=== PATIENT | male | born 1940 | race Caucasian/White ===

== ENCOUNTER 2017-05-22 19:37 | Inpatient (IN) | payer MEDICARE, BC ==
[2017-05-22] MEDS ORDERED: Sodium Chloride 0.9% 10 ML Syringe FLUSH PRN ×2 (20:05→23:23)
[2017-05-22] MEDS ORDERED: Albuterol 0.083% 2.5 MG/3 ML Neb Soln NEB ONE (20:20)
--- NOTE | 2017-05-22 20:24 | EDM.PDOC ---
ED HPI GENERAL MEDICAL PROBLEM - General Chief Complaint: Respiratory Problem Stated Complaint: COPD TROUBLE BREATHING Time Seen by Provider: 05/22/17 20:20 Source of Information: Reports: Patient, Family History Limitations: Reports: No Limitations - History of Present Illness INITIAL COMMENTS - FREE TEXT/NARRATIVE: pt has had progressive sob and fever. They did try to call there internet sales consultant yesterday for antbiotics and they were not able to get ahold of him. Onset: Gradual Duration: Hour(s): Location: Reports: Chest Associated Symptoms: Reports: Cough, Diaphoresis, Fever/Chills, Shortness of Breath, Weakness denies pain Pain Score (Numeric/FACES): 0 - Related Data Allergies Allergy/AdvReac Type Severity Reaction Status Date / Time No Known Allergies Allergy Verified 05/22/17 20:09 ED ROS GENERAL - Review of Systems Review Of Systems: See Below Constitutional: Reports: Fever, Chills, Malaise, Weakness HEENT: Reports: No Symptoms Respiratory: Reports: Shortness of Breath, Wheezing, Cough, Sputum Cardiovascular: Reports: No Symptoms, Chest Pain Endocrine: Reports: No Symptoms GI/Abdominal: Reports: No Symptoms : Reports: No Symptoms Musculoskeletal: Reports: No Symptoms Skin: Reports: No Symptoms ED EXAM, GENERAL - Physical Exam Exam: See Below Free Text/Narrative:: pt arrived with sob and low o2 sats. He is coughing up sputum He has been running a temp. Exam Limited By: No Limitations General Appearance: Alert, Anxious, Moderate Distress Ears: Normal TMs Nose: Normal Inspection Throat/Mouth: Normal Inspection Head: Atraumatic Neck: Normal Inspection Respiratory/Chest: Decreased Breath Sounds, Crackles, Wheezing Cardiovascular: Regular Rate, Rhythm, Tachycardia GI/Abdominal: Soft, Non-Tender (Male) Exam: Normal Inspection Rectal (Males) Exam: Deferred Back Exam: Normal Inspection Extremities: Other (very mild edema. ) Neurological: Alert, Oriented, Normal Cognition Course - Vital Signs Last Recorded V/S: Last Vital Signs Temp 39.5 C H 05/22/17 21:03 Pulse 108 H 05/22/17 21:03 Resp 32 H 05/22/17 21:03 BP 112/61 05/22/17 21:03 Pulse Ox 88 L 05/22/17 21:03 - Orders/Labs/Meds Orders: Active Orders 24 hr Category Date Time Status RT Aerosol Therapy [RC] ASDIRECTED Care 05/22/17 20:20 Active Chest 1V Frontal [CR] Stat Exams 05/22/17 20:03 Taken CULTURE BLOOD [BC] Urgent Lab 05/22/17 20:00 Received CULTURE BLOOD [BC] Urgent Lab 05/22/17 20:10 Received UA W/MICROSCOPIC [URIN] Urgent Lab 05/22/17 19:55 Uncollected Acetaminophen [Tylenol] Med 05/22/17 21:04 Once 650 mg PO NOW ONE Sodium Chloride 0.9% [Normal Saline] 1,000 ml Med 05/22/17 21:00 Ordered IV ASDIRECTED Sodium Chloride 0.9% [Saline Flush] Med 05/22/17 20:05 Active 10 ml FLUSH ASDIRECTED PRN Blood Culture x2 Reflex Set [OM.PC] Urgent Oth 05/22/17 20:02 Ordered Saline Lock Insert [OM.PC] Routine Oth 05/22/17 20:05 Ordered Medication Orders Acetaminophen (Tylenol) 650 mg PO NOW ONE Stop: 05/22/17 21:05 Sodium Chloride (Normal Saline) 1,000 mls @ 75 mls/hr IV ASDIRECTED RAMONA Sodium Chloride (Saline Flush) 10 ml FLUSH ASDIRECTED PRN PRN Reason: Keep Vein Open Labs: Laboratory Tests 05/22/17 05/22/17 05/22/17 Range/Units 19:55 20:00 20:00 WBC 11.2 H (4.5-11.0) K/uL RBC 4.56 (4.30-5.90) M/uL Hgb 14.5 (12.0-15.0) g/dL Hct 44.4 (40.0-54.0) % MCV 97 (80-98) fL MCH 32 H (27-31) pg MCHC 33 (32-36) % Plt Count 175 (150-400) K/uL Neut % (Auto) 84 H (36-66) % Lymph % (Auto) 4 L (24-44) % Calloway % (Auto) 11 H (2-6) % Eos % (Auto) 0 L (2-4) % Baso % (Auto) 1 (0-1) % Puncture Site ABG pH (7.350-7.450) ABG pCO2 (35.0-42.0) mmHg ABG pO2 (75.0-100.0) mmHg ABG HCO3 (22.0-26.0) mmol/L ABG Total CO2 (23.0-27.0) mmol/L ABG O2 Saturation (95.0-98.0) % ABG O2 Content (15.0-23.0) %vol ABG Base Excess mm/L ABG Hemoglobin (13.5-18.0) g/dL ABG Oxyhemoglobin % ABG Carboxyhemoglobin (0.0-1.6) % ABG Methemoglobin % Martin Test O2 Delivery Device Sodium 137 L (140-148) mmol/L Potassium 4.2 (3.6-5.2) mmol/L Chloride 102 (100-108) mmol/L Carbon Dioxide 29 (21-32) mmol/L Anion Gap 10.2 (5.0-14.0) mmol/L BUN 22 H (7-18) mg/dL Creatinine 1.1 (0.8-1.3) mg/dL Est Cr Clr Drug Dosing 67.22 mL/min Estimated GFR (MDRD) > 60 (>60) Glucose 134 H (74-106) mg/dL Lactic Acid 1.5 (0.4-2.0) mmol/L Calcium 8.3 L (8.5-10.1) mg/dL Total Bilirubin 0.4 (0.2-1.0) mg/dL AST 16 (15-37) U/L ALT 17 (12-78) U/L Alkaline Phosphatase 56 (46-116) U/L Ixp-P-Sdsmbniewgx Pept (5-450) pg/mL Total Protein 7.3 (6.4-8.2) g/dL Albumin 2.8 L (3.4-5.0) g/dL Globulin 4.5 H (2.3-3.5) g/dL Albumin/Globulin Ratio 0.6 L (1.2-2.2) 05/22/17 05/22/17 Range/Units 20:00 20:07 WBC (4.5-11.0) K/uL RBC (4.30-5.90) M/uL Hgb (12.0-15.0) g/dL Hct (40.0-54.0) % MCV (80-98) fL MCH (27-31) pg MCHC (32-36) % Plt Count (150-400) K/uL Neut % (Auto) (36-66) % Lymph % (Auto) (24-44) % [place]ay % (Auto) (2-6) % Eos % (Auto) (2-4) % Baso % (Auto) (0-1) % Puncture Site left radial ABG pH 7.435 (7.350-7.450) ABG pCO2 42.1 H (35.0-42.0) mmHg ABG pO2 58.9 L (75.0-100.0) mmHg ABG HCO3 27.8 H (22.0-26.0) mmol/L ABG Total CO2 24.1 (23.0-27.0) mmol/L ABG O2 Saturation 90.0 L (95.0-98.0) % ABG O2 Content 18.3 (15.0-23.0) %vol ABG Base Excess 3.6 mm/L ABG Hemoglobin 14.8 (13.5-18.0) g/dL ABG Oxyhemoglobin 87.9 % ABG Carboxyhemoglobin 1.8 H (0.0-1.6) % ABG Methemoglobin 0.5 % Martin Test Passed O2 Delivery Device Nasal cannula Sodium (140-148) mmol/L Potassium (3.6-5.2) mmol/L Chloride (100-108) mmol/L Carbon Dioxide (21-32) mmol/L Anion Gap (5.0-14.0) mmol/L BUN (7-18) mg/dL Creatinine (0.8-1.3) mg/dL Est Cr Clr Drug Dosing mL/min Estimated GFR (MDRD) (>60) Glucose (74-106) mg/dL Lactic Acid (0.4-2.0) mmol/L Calcium (8.5-10.1) mg/dL Total Bilirubin (0.2-1.0) mg/dL AST (15-37) U/L ALT (12-78) U/L Alkaline Phosphatase (46-116) U/L Ayf-W-Midykzzgpno Pept 1334 H (5-450) pg/mL Total Protein (6.4-8.2) g/dL Albumin (3.4-5.0) g/dL Globulin (2.3-3.5) g/dL Albumin/Globulin Ratio (1.2-2.2) Meds: Medications Generic Name Dose Route Start Last Admin Trade Name Freq PRN Reason Stop Dose Admin Acetaminophen 650 mg 05/22/17 21:04 Tylenol PO 05/22/17 21:05 NOW ONE Sodium Chloride 1,000 mls @ 75 mls/hr 05/22/17 21:00 Normal Saline IV ASDIRECTED RAMONA Sodium Chloride 10 ml 05/22/17 20:05 Saline Flush FLUSH ASDIRECTED PRN Keep Vein Open Discontinued Medications Generic Name Dose Route Start Last Admin Trade Name Freq PRN Reason Stop Dose Admin Albuterol 2.5 mg 05/22/17 20:20 05/22/17 20:42 Proventil Neb Soln NEB 05/22/17 20:21 2.5 mg ONETIME ONE Administration Furosemide 40 mg 05/22/17 20:54 Lasix IVPUSH 05/22/17 20:55 ONETIME ONE - Re-Assessments/Exams Free Text/Narrative Re-Assessment/Exam: 05/22/17 21:05 t fever continues to rise. His chest xray may have somne infiltrate on the left. He may also be fluid overloaded. His wbc is 11,000. Departure - Departure Time of Disposition: 21:07 Disposition: Admitted As Inpatient 65 Condition: Fair Clinical Impression: Pneumonia, Bronchospasm - Discharge Information Forms: ED Department Discharge Care Plan Goals: admit to Dr ruiz. - My Orders Last 24 Hours: My Active Orders 05/22/17 19:55 UA W/MICROSCOPIC [URIN] Urgent 05/22/17 20:00 CULTURE BLOOD [BC] Urgent 05/22/17 20:02 Blood Culture x2 Reflex Set [OM.PC] Urgent 05/22/17 20:03 Chest 1V Frontal [CR] Stat 05/22/17 20:05 Sodium Chloride 0.9% [Saline Flush] 10 ml FLUSH ASDIRECTED PRN Saline Lock Insert [OM.PC] Routine 05/22/17 20:10 CULTURE BLOOD [BC] Urgent 05/22/17 20:20 RT Aerosol Therapy [RC] ASDIRECTED 05/22/17 21:00 Sodium Chloride 0.9% [Normal Saline] 1,000 ml IV ASDIRECTED 05/22/17 21:04 Acetaminophen [Tylenol] 650 mg PO NOW ONE - Assessment/Plan Last 24 Hours: My Active Orders 05/22/17 19:55 UA W/MICROSCOPIC [URIN] Urgent 05/22/17 20:00 CULTURE BLOOD [BC] Urgent 05/22/17 20:02 Blood Culture x2 Reflex Set [OM.PC] Urgent 05/22/17 20:03 Chest 1V Frontal [CR] Stat 05/22/17 20:05 Sodium Chloride 0.9% [Saline Flush] 10 ml FLUSH ASDIRECTED PRN Saline Lock Insert [OM.PC] Routine 05/22/17 20:10 CULTURE BLOOD [BC] Urgent 05/22/17 20:20 RT Aerosol Therapy [RC] ASDIRECTED 05/22/17 21:00 Sodium Chloride 0.9% [Normal Saline] 1,000 ml IV ASDIRECTED 05/22/17 21:04 Acetaminophen [Tylenol] 650 mg PO NOW ONE
[2017-05-22] MEDS ORDERED: Furosemide 40 MG/4 ML VIAL IVPUSH ONE (20:54)
[2017-05-22] MEDS ORDERED: Sodium Chloride 0.9% 1,000 ML IV SCH ×2 (21:00→23:23)
[2017-05-22] MEDS ORDERED: Acetaminophen 325 MG Tab PO ONE (21:04)
[2017-05-22] MEDS ORDERED: methylPREDNISolone Sodium Succinate 125 MG/2 ML SDV IVPUSH ONE (21:06)
[2017-05-22] MEDS ORDERED: Levofloxacin/Dextrose 5%-Water 500 MG in Premix Bag 1 BAG IV ONE (21:22)
--- NOTE | 2017-05-22 22:54 | PCM.HP ---
H&P History of Present Illness - General Date of Service: 05/22/17 Admit Problem/Dx: Admission Diagnosis/Problem Admission Diagnosis/Problem Pneumonia Source of Information: Patient, Family, Provider, RN Notes Reviewed History Limitations: Reports: No Limitations - History of Present Illness Initial Comments - Free Text/Narative: Mr. Joiner is a 76-year-old gentleman who is admitted through the emergency department because of increased shortness of breath with hypoxia and probable underlying pneumonia causing COPD exacerbation. He has a known history of COPD, uses oxygen at night with his C Pap, typically does not use oxygen during the day. He has had intermittent exacerbations but none this severe. He has taken prednisone as well as antibiotics within the last 6 months. 2 days ago began to feel more short of breath these symptoms have progressed over the past few days and he is had a cough productive of yellow colored sputum. This afternoon shortness of breath became significantly worse and he was noted to have a fever. On evaluation emergency room department he had a temperature elevation over over 103F, with obvious hypoxia, mild elevation in white blood cell count , and bibasilar patchy infiltrates on chest x-ray. denies pain Pain Score (Numeric/FACES): 0 - Related Data Allergies/Adverse Reactions: Allergies Allergy/AdvReac Type Severity Reaction Status Date / Time No Known Allergies Allergy Verified 05/22/17 20:09 Home Medications: Home Meds Albuterol [Ventolin HFA] 1 puff INH ASDIRECTED PRN 05/22/17 [History] Digoxin [Digoxin] 125 mcg PO DAILY 05/22/17 [History] Fluticasone/Vilanterol [Breo Ellipta 100-25 MCG Inhalation Kit] 1 puff INH DAILY 05/22/17 [History] Mirabegron [Myrbetriq] 100 mg PO DAILY 05/22/17 [History] Tamsulosin HCl 0.4 mg PO DAILY 05/22/17 [History] Umeclidinium [place] [Incruse Ellipta*] 1 puff INH DAILY 05/22/17 [History] Warfarin [Coumadin] 5 - 7.5 mg PO ASDIRECTED 05/22/17 [History] Past Medical History HEENT History: Reports: Hard of Hearing, Impaired Vision, Other (See Below) Other HEENT History: hearing aids bilateral ears Cardiovascular History: Reports: None Respiratory History: Reports: Bronchitis, Recurrent, COPD, Sleep Apnea, Other ( See Below) Other Respiratory History: Cpap Gastrointestinal History: Reports: None Genitourinary History: Reports: Other (See Below) Other Genitourinary History: Prostate CA Musculoskeletal History: Reports: Arthritis Neurological History: Reports: None Psychiatric History: Reports: None Endocrine/Metabolic History: Reports: None Hematologic History: Reports: None Oncologic (Cancer) History: Reports: Prostate Dermatologic History: Reports: None - Infectious Disease History Infectious Disease History: Reports: None - Past Surgical History HEENT Surgical History: Reports: None Cardiovascular Surgical History: Reports: None Respiratory Surgical History: Reports: None GI Surgical History: Reports: Colonoscopy, Hernia Repair/Other Endocrine Surgical History: Reports: None Neurological Surgical History: Reports: None Musculoskeletal Surgical History: Reports: Shoulder Surgery Oncologic Surgical History: Reports: None Dermatological Surgical History: Reports: None Social & Family History - Tobacco Use Smoking Status *Q: Current Every Day Smoker Years of Tobacco use: 50 Packs/Tins Daily: 0.5 - Caffeine Use Caffeine Use: Reports: Coffee - Recreational Drug Use Recreational Drug Use: No H&P Review of Systems - Review of Systems: Review Of Systems: See Below General: Reports: Fever, Chills, Weakness, Diaphoresis HEENT: Reports: No Symptoms Pulmonary: Reports: Shortness of Breath, Wheezing, Cough, Sputum. Denies: Pleuritic Chest Pain, Hemoptysis Cardiovascular: Reports: Dyspnea on Exertion. Denies: Chest Pain, Palpitations , Orthopnea, PND, Edema, Lightheadedness, Syncope Gastrointestinal: Reports: No Symptoms Genitourinary: Reports: No Symptoms Musculoskeletal: Reports: No Symptoms Skin: Reports: No Symptoms Psychiatric: Reports: No Symptoms Neurological: Reports: No Symptoms Hematologic/Lymphatic: Reports: No Symptoms Immunologic: Reports: No Symptoms Exam - Exam Exam: See Below - Vital Signs Vital Signs: Last Vital Signs Temp 103.1 F H 05/22/17 21:16 Pulse 137 H 05/22/17 22:15 Resp 26 H 05/22/17 22:15 BP 108/80 05/22/17 22:15 Pulse Ox 87 L 05/22/17 22:15 Weight: 225 lb - Exam Quality Assessment: Supplemental Oxygen, DVT Prophylaxis General: Alert, Oriented, Cooperative, Moderate Distress HEENT: Conjunctiva Clear, Nares Patent, Normal Nasal Septum, Posterior Pharynx Clear, Pupils Equal. No: Hearing Intact, Mucosa Moist & [place] Neck: Supple, Trachea Midline, +2 Carotid Pulse wo Bruit Lungs: Decreased Breath Sounds, Wheezing. No: Normal Respiratory Effort, Crackles, Rales, Rhonchi, Rub, Stridor Cardiovascular: Normal S1, Normal S2, Irregular Rhythm, Tachycardia. No: Bradycardia, Systolic Murmur, Diastolic Murmur GI/Abdominal Exam: Normal Bowel Sounds, Soft, No Organomegaly, No Distention Back Exam: Normal Inspection, Full Range of Motion, NT Extremities: Normal Inspection, Normal Range of Motion, Non-Tender, No Pedal Edema, Normal Capillary Refill Skin: Warm, Dry, Intact Neurological: Cranial Nerves Intact, Strength Equal Bilateral, Normal Speech, Normal Tone, Sensation Intact. No: Focal Deficit Neuro Extensive - Mental Status: Alert, Oriented x3, Normal Mood/Affect, Normal Cognition, Memory Intact - Patient Data Result Diagrams: 05/22/17 19:55 05/22/17 20:00 *Q Meaningful Use (ADM) - VTE *Q VTE Criteria *Q: VTE Pharmacological Contraindications *Q: High INR Value - VTE Risk Assess *Q Each Risk Factor Represents 1 Point: Serious Lung Disease Including Pneumonia, Less than 1 Month, Abnormal Pulmonary Function (COPD) Total Score 1 Point Risk Factors: 2 Each Risk Factor Represents 2 Points: Previous Malignancy Total Score 2 Point Risk Factors: 2 Each Risk Factor Represents 3 Points: Age 75 Years or Greater Total Score 3 Point Risk Factors: 3 Each Risk Factor Represents 5 Points: None Total Score 5 Point Risk Factors: 0 Venous Thromboembolism Risk Factor Score *Q: 7 - Stroke *Q Stroke Criteria *Q: - AMI *Q AMI Criteria *Q: Problem List Initiated/Reviewed/Updated: Yes Orders Last 24hrs: Active Orders 24 hr Category Date Time Status Resuscitation Status Routine Resus Stat 05/22/17 22:22 Ordered Medication Orders Sodium Chloride (Normal Saline) 1,000 mls @ 75 mls/hr IV ASDIRECTED RAMONA Last Admin: 05/22/17 21:20 Dose: 75 mls/hr Sodium Chloride (Saline Flush) 10 ml FLUSH ASDIRECTED PRN PRN Reason: Keep Vein Open Last Admin: 05/22/17 21:27 Dose: 10 ml Assessment/Plan Comment:: ASSESSMENT AND PLAN PNEUMONIA-bibasilar infiltrates noted on chest x-ray, no previous x-ray available for comparison. He has taken antibiotics and been treated with steroids within the past 6 months. No evidence of sepsis, he is tachycardic but this seems to be more likely secondary to his respiratory compromise. -Expanded IV antibiotic coverage, Zosyn and levofloxacin -Blood and sputum cultures pending -IV fluids for hydration COPD EXACERBATION SECONDARY TO PNEUMONIA-associated hypoxia, persistent tachycardia and elevation in respiratory rate -BiPAP -Nebulizer therapy as needed -IV Solu-Medrol 40 mg every 6 hours -Supplemental oxygen as needed HYPOXIC RESPIRATORY FAILURE-secondary to pneumonia and COPD exacerbation -Management as above ATRIAL FIBRILLATION WITH RAPID VENTRICULAR RESPONSE-chronic, current increase in rate secondary to respiratory compromise -Continue anticoagulation with warfarin -INR now and in a.m. -Continue current therapy with digoxin -Dig level in a.m. MAINTENANCE ISSUES -DVT prophylaxis; current therapy with warfarin should provide adequate DVT prophylaxis -GI prophylaxis; not indicated -Chung catheter; not indicated -Nutrition; regular diet -Nicotine dependence; not required CODE STATUS-FULL CODE ADMISSION STATUS-patient will be admitted to inpatient status, expect at least a 2 night hospital stay for evaluation and management of problems as outlined above. At the time of this admission I do not reasonably expected evaluation and management of this problem will require more than a 96 hour hospital stay. DISPOSITION-anticipate discharge to home after the hospital stay. PRIMARY CARE PROVIDER-patient receives primary care and subspecialty care in the [facility]
[2017-05-22] MEDS ORDERED: Magnesium Hydroxide 400 MG/5 ML Susp 30 ML Cup PO PRN (23:23)
[2017-05-22] MEDS ORDERED: Piperacillin/Tazobactam 3.375 GM in Sodium Chloride 0.9% 50 ML IV SCH (23:23)
[2017-05-22] MEDS ORDERED: methylPREDNISolone Sodium Succinate 40 MG/1 ML SDV IVPUSH SCH (23:23)
[2017-05-22] MEDS ORDERED: oxyCODONE 5 MG Tab PO PRN (23:23)
[2017-05-22] MEDS ORDERED: Docusate Sodium 100 MG Cap PO PRN (23:23)
[2017-05-22] MEDS ORDERED: Ondansetron 4 MG/2 ML SDV IV PRN (23:23)
[2017-05-22] MEDS ORDERED: Acetaminophen 325 MG Tab PO PRN (23:23)
[2017-05-22] MEDS ORDERED: Levofloxacin/Dextrose 5%-Water 750 MG in Premix Bag 1 BAG IV SCH (23:23)
[2017-05-22] MEDS ORDERED: Polyethylene Glycol 3350 Powder 17 GM Packet PO PRN (23:23)
[2017-05-22] MEDS ORDERED: Warfarin 5 MG Tab PO SCH (23:23)
[2017-05-22] MEDS ORDERED: Albuterol 0.083% 2.5 MG/3 ML Neb Soln NEB PRN (23:23)
[2017-05-22] MEDS ORDERED: Sodium Chloride 0.9% 500 ML IV SCH (23:23)
[2017-05-22] MEDS ORDERED: Levofloxacin/Dextrose 5%-Water 250 MG in Premix Bag 1 BAG IV ONE (23:53)
[2017-05-23] MEDS: Piperacillin/Tazobactam 3.375 GM in Sodium Chloride 0.9% 50 ML IV SCH ×2 (00:13→05:52)
[2017-05-23] MEDS ORDERED: Piperacillin/Tazobactam 3.375 GM in Sodium Chloride 0.9% 50 ML IV SCH (00:15)
[2017-05-23] MEDS: methylPREDNISolone Sodium Succinate 40 MG/1 ML SDV IVPUSH SCH ×3 (02:09→21:38)
[2017-05-23] MEDS ORDERED: Albuterol/Ipratropium 3.0-0.5 MG/3 ML Neb Soln NEB SCH (06:00)
[2017-05-23] MEDS: Albuterol/Ipratropium 3.0-0.5 MG/3 ML Neb Soln NEB SCH ×4 (07:17→20:43)
[2017-05-23] MEDS: Tamsulosin 0.4 MG Cap.ER PO SCH (08:30)
[2017-05-23] MEDS: Digoxin 125 MCG Tab PO SCH (08:30)
[2017-05-23] MEDS: Mirabegron 25 MG Tab Extended Release PO SCH (08:30)
[2017-05-23] MEDS ORDERED: Non-Formulary Medication 1 Each (Fluticasone/Vilanterol [Breo Ellipta 100-25 Mcg Inhalatio INH SCH (09:00)
--- NOTE | 2017-05-23 09:23 | PCM.PN ---
- General Info Date of Service: 05/23/17 Functional Status: Reports: Pain Controlled, Tolerating Diet - Review of Systems General: Reports: Fever, Weakness. Denies: Chills Pulmonary: Reports: Shortness of Breath, Wheezing. Denies: Cough, Sputum Cardiovascular: Reports: Dyspnea on Exertion. Denies: Chest Pain, Palpitations , Orthopnea, PND, Edema, Lightheadedness Gastrointestinal: Reports: No Symptoms Genitourinary: Reports: No Symptoms - Patient Data Vitals - Most Recent: Last Vital Signs Temp 97.3 F 05/23/17 05:00 Pulse 79 05/23/17 08:30 Resp 26 H 05/23/17 06:33 BP 100/55 L 05/23/17 06:33 Pulse Ox 99 05/23/17 06:33 Weight - Most Recent: 227 lb 11.8 oz I&O - Last 24 Hours: Intake & Output 05/22/17 05/23/17 05/23/17 22:59 06:59 14:59 Intake Total 1167 Output Total 450 Balance 717 Lab Results Last 24 Hours: Laboratory Results - last 24 hr 05/22/17 05/23/17 05/23/17 Range/Units 23:23 04:50 04:50 WBC (4.5-11.0) K/uL RBC (4.30-5.90) M/uL Hgb (12.0-15.0) g/dL Hct (40.0-54.0) % MCV (80-98) fL MCH (27-31) pg MCHC (32-36) % Plt Count (150-400) K/uL Neut % (Auto) (36-66) % Lymph % (Auto) (24-44) % [place] % (Auto) (2-6) % Eos % (Auto) (2-4) % Baso % (Auto) (0-1) % PT 36.4 H 35.6 H (9.5-12.0) sec INR 3.24 H 3.17 H (0.80-1.20) Sodium (140-148) mmol/L Potassium (3.6-5.2) mmol/L Chloride (100-108) mmol/L Carbon Dioxide (21-32) mmol/L Anion Gap (5.0-14.0) mmol/L BUN (7-18) mg/dL Creatinine (0.8-1.3) mg/dL Est Cr Clr Drug Dosing Estimated GFR (MDRD) (>60) Glucose (74-106) mg/dL Calcium (8.5-10.1) mg/dL Magnesium (1.8-2.4) mg/dL Digoxin 0.33 L (0.90-2.00) ng/mL 05/23/17 05/23/17 Range/Units 04:50 04:50 WBC 9.2 (4.5-11.0) K/uL RBC 4.46 (4.30-5.90) M/uL Hgb 14.0 (12.0-15.0) g/dL Hct 43.7 (40.0-54.0) % MCV 98 (80-98) fL MCH 31 (27-31) pg MCHC 32 (32-36) % Plt Count 154 (150-400) K/uL Neut % (Auto) 94 H (36-66) % Lymph % (Auto) 3 L (24-44) % [place] % (Auto) 3 (2-6) % Eos % (Auto) 0 L (2-4) % Baso % (Auto) 0 (0-1) % PT (9.5-12.0) sec INR (0.80-1.20) Sodium 139 L (140-148) mmol/L Potassium 4.3 (3.6-5.2) mmol/L Chloride 105 (100-108) mmol/L Carbon Dioxide 28 (21-32) mmol/L Anion Gap 10.3 (5.0-14.0) mmol/L BUN 21 H (7-18) mg/dL Creatinine 1.2 (0.8-1.3) mg/dL Est Cr Clr Drug Dosing TNP Estimated GFR (MDRD) 59 L (>60) Glucose 147 H (74-106) mg/dL Calcium 8.1 L (8.5-10.1) mg/dL Magnesium 2.0 (1.8-2.4) mg/dL Digoxin (0.90-2.00) ng/mL Med Orders - Current: Current Medications Acetaminophen (Tylenol) 650 mg PO Q4H PRN PRN Reason: Pain (Mild 1-3)/fever Albuterol (Proventil Neb Soln) 2.5 mg NEB Q4H PRN PRN Reason: Shortness Of Breath/wheezing Albuterol/Ipratropium (Duoneb 3.0-0.5 Mg/3 Ml) 3 ml NEB QIDRT [facility] Last Admin: 05/23/17 07:17 Dose: 3 ml Digoxin (Lanoxin) 125 mcg PO DAILY [facility] Last Admin: 05/23/17 08:30 Dose: 125 mcg Docusate Sodium (Colace) 100 mg PO BID PRN PRN Reason: Constipation Levofloxacin/Dextrose 750 mg/ (Premix) 150 mls @ 100 mls/hr IV Q24H [facility] Piperacillin/Tazobactam/ (Dextrose 3.375 gm/ Premix) 50 mls @ 100 mls/hr IV Q6H [facility] Magnesium Hydroxide (Milk Of Magnesia) 30 ml PO Q12H PRN PRN Reason: Constipation Methylprednisolone Sodium Succinate (Solu-Medrol) 40 mg IVPUSH Q6H [facility] Last Admin: 05/23/17 08:27 Dose: 40 mg Mirabegron (Myrbetriq) 100 mg PO DAILY [facility] Last Admin: 05/23/17 08:30 Dose: 100 mg Non-Formulary Medication (Fluticasone/Vilanterol [Breo Ellipta 100-25 Mcg Inhalation Kit]) 1 puff INH DAILY [facility] Non-Formulary Medication (Umeclidinium [place] [Incruse Ellipta*]) 1 puff INH DAILY [facility] Ondansetron HCl (Zofran) 4 mg IV Q4H PRN PRN Reason: Nausea/Vomiting Oxycodone HCl (Oxycodone) 5 mg PO Q4H PRN PRN Reason: Pain (moderate 4-6) Polyethylene Glycol (Miralax) 17 gm PO DAILY PRN PRN Reason: Constipation Sodium Chloride (Saline Flush) 10 ml FLUSH ASDIRECTED PRN PRN Reason: Keep Vein Open Tamsulosin HCl (Flomax) 0.4 mg PO DAILY [facility] Last Admin: 05/23/17 08:30 Dose: 0.4 mg Discontinued Medications Acetaminophen (Tylenol) 650 mg PO NOW ONE Stop: 05/22/17 21:05 Last Admin: 05/22/17 21:16 Dose: 650 mg Albuterol (Proventil Neb Soln) 2.5 mg NEB ONETIME ONE Stop: 05/22/17 20:21 Last Admin: 05/22/17 20:42 Dose: 2.5 mg Albuterol/Ipratropium (Duoneb 3.0-0.5 Mg/3 Ml) 3 ml NEB QID [facility] Furosemide (Lasix) 40 mg IVPUSH ONETIME ONE Stop: 05/22/17 20:55 Last Admin: 05/22/17 21:16 Dose: 40 mg Sodium Chloride (Normal Saline) 1,000 mls @ 75 mls/hr IV ASDIRECTED [facility] Last Admin: 05/22/17 21:20 Dose: 75 mls/hr Levofloxacin/Dextrose 500 mg/ (Premix) 100 mls @ 100 mls/hr IV ONETIME ONE Stop: 05/22/17 22:21 Last Admin: 05/22/17 21:42 Dose: 100 mls/hr Levofloxacin/Dextrose 750 mg/ (Premix) 150 mls @ 100 mls/hr IV Q24H [facility] Piperacillin Sod/Tazobactam (Sod 3.375 gm/ Sodium Chloride) 50 mls @ 100 mls/ hr IV Q6H [facility] Sodium Chloride (Normal Saline) 500 mls @ 250 mls/hr IV .BOLUS [facility] Stop: 05/23/17 05:24 Sodium Chloride (Normal Saline) 1,000 mls @ 125 mls/hr IV ASDIRECTED [facility] Stop: 05/23/17 04:30 Last Admin: 05/23/17 02:31 Dose: 125 mls/hr Levofloxacin/Dextrose 250 mg/ (Premix) 50 mls @ 50 mls/hr IV ONETIME ONE Stop: 05/23/17 00:52 Last Admin: 05/23/17 01:06 Dose: 50 mls/hr Piperacillin Sod/Tazobactam (Sod 3.375 gm/ Sodium Chloride) 50 mls @ 100 mls/ hr IV Q6H [facility] Piperacillin Sod/Tazobactam (Sod 3.375 gm/ Sodium Chloride) 50 mls @ 100 mls/ hr IV Q6H [facility] Last Admin: 05/23/17 05:52 Dose: 100 mls/hr Methylprednisolone Sodium Succinate (Solu-Medrol) 125 mg IVPUSH ONETIME ONE Stop: 05/22/17 21:07 Last Admin: 05/22/17 21:16 Dose: 125 mg Methylprednisolone Sodium Succinate (Solu-Medrol) 40 mg IVPUSH Q6H [facility] Sodium Chloride (Saline Flush) 10 ml FLUSH ASDIRECTED PRN PRN Reason: Keep Vein Open Last Admin: 05/22/17 21:27 Dose: 10 ml Warfarin Sodium (Coumadin) 5 - 7.5 mg PO ASDIRECTED [facility] - Exam Quality Assessment: Urine Catheter, DVT Prophylaxis General: Alert, Oriented, Cooperative, Mild Distress Lungs: Decreased Breath Sounds, Wheezing. No: Rales, Rhonchi, Rub, Stridor Cardiovascular: Regular Rate, Regular Rhythm, No Murmurs GI/Abdominal Exam: Normal Bowel Sounds, Soft, Non-Tender, No Distention Extremities: Normal Inspection, No Pedal Edema Skin: Warm, Dry, Intact - Problem List Review Problem List Initiated/Reviewed/Updated: Yes - My Orders Last 24 Hours: My Active Orders 05/22/17 22:22 Resuscitation Status Routine 05/22/17 23:23 Patient Status [ADT] Routine Intake and Output [RC] QSHIFT Notify Provider Vital Signs [RC] ASDIRECTED Oxygen Therapy [RC] PRN Peripheral IV Care [RC] Q4H RT Aerosol Therapy [RC] ASDIRECTED RT BiPAP/CPAP [RC] ASDIRECTED Up With Assistance [RC] ASDIRECTED Vital Signs [RC] Q4H CULTURE RESPIRATORY + SMEAR [RM] Stat Acetaminophen [Tylenol] 650 mg PO Q4H PRN Albuterol [Proventil Neb Soln] 2.5 mg NEB Q4H PRN Docusate Sodium [Colace] 100 mg PO BID PRN Magnesium Hydroxide [Milk of Magnesia] 30 ml PO Q12H PRN Ondansetron [Zofran] 4 mg IV Q4H PRN Polyethylene Glycol 3350 [MiraLAX] 17 gm PO DAILY PRN Sodium Chloride 0.9% [Saline Flush] 10 ml FLUSH ASDIRECTED PRN oxyCODONE 5 mg PO Q4H PRN Peripheral IV Insertion Adult [OM.PC] Routine 05/22/17 23:51 Insert Chung Catheter [Insert Urinary Catheter] [OM.PC] Q24H 05/22/17 23:52 Urinary Catheter Assessment [RC] ASDIRECTED 05/23/17 02:00 methylPREDNISolone Sod Succ [Solu-MEDROL] 40 mg IVPUSH Q6H 05/23/17 05:00 Chest 1V Frontal [CR] Timed 05/23/17 07:00 Albuterol/Ipratropium [DuoNeb 3.0-0.5 MG/3 ML] 3 ml NEB QIDRT 05/23/17 09:00 Digoxin [Lanoxin] 125 mcg PO DAILY Fluticasone/Vilanterol [Breo Ellipta 100-25 MCG Inhalation Kit] 1 puff INH DAILY Mirabegron [Myrbetriq] 100 mg PO DAILY Tamsulosin [Flomax] 0.4 mg PO DAILY Umeclidinium [place] [Incruse Ellipta*] 1 puff INH DAILY 05/23/17 09:16 Warfarin [Coumadin] 2.5 mg PO ONETIME ONE Convert IV to Saline Lock [OM.PC] Routine 05/23/17 12:00 Piperacillin/Tazobactam/Dext [Zosyn in Dextrose Iso-Osmotic 3.375 GM] 3.375 gm Premix Bag 1 bag IV Q6H 05/23/17 22:00 Levofloxacin/Dextrose 5%-Water [Levaquin in D5W 750 MG/150 ML] 750 mg Premix Bag 1 bag IV Q24H 05/24/17 05:00 BASIC METABOLIC PANEL,BMP [CHEM] Timed CBC WITH AUTO DIFF [HEME] Timed INR,PT,PROTHROMBIN TIME [COAG] Timed MAGNESIUM [CHEM] Timed - Plan Plan:: ASSESSMENT AND PLAN PNEUMONIA-patchy bibasilar infiltrates noted on repeat chest x-ray this morning , not significantly changed from admission. He has been stable through the night and feels improved from a respiratory standpoint with less shortness of breath and marked improvement in cough. -Expanded IV antibiotic coverage, Zosyn and levofloxacin -Blood and sputum cultures pending -Saline lock IV COPD EXACERBATION SECONDARY TO significantly improved since admission with current management -BiPAP -Nebulizer therapy as needed -IV Solu-Medrol 40 mg every 12 hours -Supplemental oxygen as needed HYPOXIC RESPIRATORY FAILURE-secondary to pneumonia and COPD exacerbation, improved from admission. -Management as above ATRIAL FIBRILLATION WITH RAPID VENTRICULAR converted to sinus rhythm during the night -Continue anticoagulation with warfarin -INR in a.m. -Continue current therapy with digoxin MAINTENANCE ISSUES -DVT prophylaxis; current therapy with warfarin should provide adequate DVT prophylaxis -GI prophylaxis; not indicated -Chung catheter; not indicated -Nutrition; regular diet -Nicotine dependence; not required CODE STATUS-FULL CODE ADMISSION STATUS-patient will be admitted to inpatient status, expect at least a 2 night hospital stay for evaluation and management of problems as outlined above. At the time of this admission I do not reasonably expected evaluation and management of this problem will require more than a 96 hour hospital stay. DISPOSITION-anticipate discharge to home after the hospital stay. PRIMARY CARE PROVIDER-patient receives primary care and subspecialty care in the [facility]– [place]
[2017-05-23] MEDS: Non-Formulary Medication 1 Each (Umeclidinium Bromide [Incruse Ellipta*] 1 PUFF) INH SCH (09:36)
[2017-05-23] MEDS ORDERED: Formoterol/Mometasone 200-5 MCG 8.8 GM Inhaler IH SCH ×2 (09:45)
[2017-05-23] MEDS ORDERED: methylPREDNISolone Sodium Succinate 40 MG/1 ML SDV IVPUSH SCH (10:00)
[2017-05-23] MEDS: Piperacillin/Tazobactam/Dext 3.375 GM in Premix Bag 1 BAG IV SCH ×3 (11:28→23:40)
[2017-05-23] MEDS ORDERED: Warfarin 2.5 MG Tab PO ONE (13:00)
[2017-05-23] MEDS: Formoterol/Mometasone 200-5 MCG 8.8 GM Inhaler IH SCH (20:42)
[2017-05-23] MEDS ORDERED: Levofloxacin/Dextrose 5%-Water 750 MG in Premix Bag 1 BAG IV SCH (22:00)
[2017-05-24] MEDS: Piperacillin/Tazobactam/Dext 3.375 GM in Premix Bag 1 BAG IV SCH (05:45)
[2017-05-24] MEDS: Albuterol/Ipratropium 3.0-0.5 MG/3 ML Neb Soln NEB SCH (07:16)
[2017-05-24] MEDS: Formoterol/Mometasone 200-5 MCG 8.8 GM Inhaler IH SCH (07:17)
[2017-05-24 08:15] VITALS: BP 92/53
[2017-05-24] MEDS: methylPREDNISolone Sodium Succinate 40 MG/1 ML SDV IVPUSH SCH (08:31)
[2017-05-24] MEDS: Digoxin 125 MCG Tab PO SCH (08:31)
[2017-05-24] MEDS: Tamsulosin 0.4 MG Cap.ER PO SCH (08:32)
[2017-05-24] MEDS: Mirabegron 25 MG Tab Extended Release PO SCH (08:32)
[2017-05-24] MEDS: Non-Formulary Medication 1 Each (Umeclidinium Bromide [Incruse Ellipta*] 1 PUFF) INH SCH (08:37)
--- NOTE | 2017-05-24 08:58 | PCM.DCSUM1 ---
Discharge Summary - Hospital Course Brief History: 76-year-old male with history of Parkinson's disease and unspecified movement disorder who presented with cough, shortness of breath and fever. He was admitted for management of pneumonia with hypoxic respiratory failure. - Discharge Data Discharge Date: 05/24/17 Discharge Disposition: Home, Self-Care 01 Condition: Good - Patient Summary/Data Hospital Course: iNma presented to the emergency room with shortness of breath and weakness. Workup in the emergency room was suggestive of hypoxic respiratory failure secondary to patchy bibasilar pneumonia. Initially his respiratory failure was significant enough that he required noninvasive ventilation overnight. At the time of admission he was started on IV steroids as well as extended spectrum antibiotics for his pneumonia. Overnight following admission he improved significantly. By the morning after admission he is off of the noninvasive ventilation. He is requiring minimal supplemental oxygen. Energy is improving. Vital signs have all stabilized at this point. He remained hospitalized for a second night. He did use the noninvasive ventilation overnight. No major difficulties overnight either night. By the morning of discharge she is off supplemental oxygen. He is able to ambulate to the bathroom and back without hypoxia. Vital signs have all been stable. He has not had any fevers. No positive cultures. I believe he has improved enough at this point to be safe for outpatient management. He will be transitioned to monotherapy with levofloxacin which will be dosed 750 mg. He'll be on prednisone for 3-1/2 more days to complete his prednisone burst. He will be following up with his primary care when he gets back home or sooner if needed well he is still appear on vacation. He has not been requiring supplemental oxygen at the time of discharge. - Patient Instructions Diet: Regular Diet as Tolerated Activity: As Tolerated Driving: May Drive Today Showering/Bathing: May Shower Notify Provider of: Fever, Increased Pain, Nausea and/or Vomiting Other/Special Instructions: 1. You were in the hospital for management of pneumonia. Your breathing has improved significantly with the treatments provided during your hospital stay. I recommend that she take levofloxacin 750 mg once daily at bedtime for 6 more days. Your first dose is due tonight. I also recommend that you take prednisone 20 mg twice daily with meals for 7 more doses. Your next dose is due at suppertime. You should continue to take the Mucinex until your cough has resolved. 2. Your INR level was elevated at 3.2 today. I would recommend that you skip your dose today and then resume your usual warfarin dosing starting tomorrow. 3. Please seek medical attention if you develop fever greater than 101, have sudden worsening of your breathing or you develop chest pain. - Discharge Plan Prescriptions/Med Rec: Levofloxacin 750 mg PO BEDTIME #6 tablet predniSONE [Prednisone] 20 mg PO BIDAC #7 tablet Home Medications: Home Meds Albuterol [Ventolin HFA] 1 puff INH ASDIRECTED PRN 05/22/17 [History] Digoxin 125 mcg PO DAILY 05/22/17 [History] Fluticasone/Vilanterol [Breo Ellipta 100-25 MCG Inhalation Kit] 1 puff INH DAILY 05/22/17 [History] Mirabegron [Myrbetriq] 100 mg PO DAILY 05/22/17 [History] Tamsulosin HCl 0.4 mg PO DAILY 05/22/17 [History] Umeclidinium [place] [Incruse Ellipta*] 1 puff INH DAILY 05/22/17 [History] Warfarin [Coumadin] 5 - 7.5 mg PO ASDIRECTED 05/22/17 [History] Levofloxacin 750 mg PO BEDTIME #6 tablet 05/24/17 [Rx] predniSONE [Prednisone] 20 mg PO BIDAC #7 tablet 05/24/17 [Rx] Patient Handouts: Community-Acquired Pneumonia, Adult, Levofloxacin tablets Referrals: Mariana Claudio MD [Ordering Only Provider] - (Follow-up with your primary care after you return home to [place]) - Discharge Summary/Plan Comment DC Time >30 min.: No - Patient Data Vitals - Most Recent: Last Vital Signs Temp 36.9 C 05/24/17 08:00 Pulse 91 05/24/17 08:31 Resp 25 H 05/24/17 08:00 BP 92/53 L 05/24/17 08:00 Pulse Ox 92 L 05/24/17 08:00 Weight - Most Recent: 103.3 kg I&O - Last 24 hours: Intake & Output 05/23/17 05/24/17 05/24/17 22:59 06:59 14:59 Intake Total 2040 470 Output Total 275 850 Balance 1765 -380 Lab Results - Last 24 hrs: Laboratory Results - last 24 hr 05/24/17 05/24/17 05/24/17 Range/Units 05:03 05:03 05:03 WBC 13.8 H (4.5-11.0) K/uL RBC 4.29 L (4.30-5.90) M/uL Hgb 13.5 (12.0-15.0) g/dL Hct 42.1 (40.0-54.0) % MCV 98 (80-98) fL MCH 32 H (27-31) pg MCHC 32 (32-36) % Plt Count 171 (150-400) K/uL Neut % (Auto) 86 H (36-66) % Lymph % (Auto) 4 L (24-44) % [place] % (Auto) 10 H (2-6) % Eos % (Auto) 0 L (2-4) % Baso % (Auto) 0 (0-1) % PT 37.0 H (9.5-12.0) sec INR 3.29 H (0.80-1.20) Sodium 139 L (140-148) mmol/L Potassium 4.2 (3.6-5.2) mmol/L Chloride 105 (100-108) mmol/L Carbon Dioxide 30 (21-32) mmol/L Anion Gap 8.2 (5.0-14.0) mmol/L BUN 22 H (7-18) mg/dL Creatinine 1.0 (0.8-1.3) mg/dL Est Cr Clr Drug Dosing 73.94 mL/min Estimated GFR (MDRD) > 60 (>60) Glucose 141 H (74-106) mg/dL Calcium 8.0 L (8.5-10.1) mg/dL Magnesium 2.0 (1.8-2.4) mg/dL Med Orders - Current: Current Medications Acetaminophen (Tylenol) 650 mg PO Q4H PRN PRN Reason: Pain (Mild 1-3)/fever Albuterol (Proventil Neb Soln) 2.5 mg NEB Q4H PRN PRN Reason: Shortness Of Breath/wheezing Albuterol/Ipratropium (Duoneb 3.0-0.5 Mg/3 Ml) 3 ml NEB QIDRT [facility] Last Admin: 05/24/17 07:16 Dose: 3 ml Digoxin (Lanoxin) 125 mcg PO DAILY [facility] Last Admin: 05/24/17 08:31 Dose: 125 mcg Docusate Sodium (Colace) 100 mg PO BID PRN PRN Reason: Constipation Levofloxacin/Dextrose 750 mg/ (Premix) 150 mls @ 100 mls/hr IV Q24H [facility] Last Admin: 05/23/17 21:42 Dose: 100 mls/hr Piperacillin/Tazobactam/ (Dextrose 3.375 gm/ Premix) 50 mls @ 100 mls/hr IV Q6H [facility] Last Admin: 05/24/17 05:45 Dose: 100 mls/hr Magnesium Hydroxide (Milk Of Magnesia) 30 ml PO Q12H PRN PRN Reason: Constipation Methylprednisolone Sodium Succinate (Solu-Medrol) 40 mg IVPUSH Q12H [facility] Last Admin: 05/24/17 08:31 Dose: 40 mg Mirabegron (Myrbetriq) 100 mg PO DAILY [facility] Last Admin: 05/24/17 08:32 Dose: 100 mg Mometasone Furoate/Formoterol Fumar (Dulera 200-5 Mcg) 0 puff IH BIDRT [facility] Last Admin: 05/24/17 07:17 Dose: 2 puff Non-Formulary Medication (Umeclidinium [place] [Incruse Ellipta*]) 1 puff INH DAILY [facility] Last Admin: 05/24/17 08:37 Dose: Not Given Ondansetron HCl (Zofran) 4 mg IV Q4H PRN PRN Reason: Nausea/Vomiting Oxycodone HCl (Oxycodone) 5 mg PO Q4H PRN PRN Reason: Pain (moderate 4-6) Polyethylene Glycol (Miralax) 17 gm PO DAILY PRN PRN Reason: Constipation Sodium Chloride (Saline Flush) 10 ml FLUSH ASDIRECTED PRN PRN Reason: Keep Vein Open Tamsulosin HCl (Flomax) 0.4 mg PO DAILY [facility] Last Admin: 05/24/17 08:32 Dose: 0.4 mg Discontinued Medications Acetaminophen (Tylenol) 650 mg PO NOW ONE Stop: 05/22/17 21:05 Last Admin: 05/22/17 21:16 Dose: 650 mg Albuterol (Proventil Neb Soln) 2.5 mg NEB ONETIME ONE Stop: 05/22/17 20:21 Last Admin: 05/22/17 20:42 Dose: 2.5 mg Albuterol/Ipratropium (Duoneb 3.0-0.5 Mg/3 Ml) 3 ml NEB QID [facility] Furosemide (Lasix) 40 mg IVPUSH ONETIME ONE Stop: 05/22/17 20:55 Last Admin: 05/22/17 21:16 Dose: 40 mg Sodium Chloride (Normal Saline) 1,000 mls @ 75 mls/hr IV ASDIRECTED [facility] Last Admin: 05/22/17 21:20 Dose: 75 mls/hr Levofloxacin/Dextrose 500 mg/ (Premix) 100 mls @ 100 mls/hr IV ONETIME ONE Stop: 05/22/17 22:21 Last Admin: 05/22/17 21:42 Dose: 100 mls/hr Levofloxacin/Dextrose 750 mg/ (Premix) 150 mls @ 100 mls/hr IV Q24H [facility] Last Admin: 05/24/17 07:22 Dose: Not Given Piperacillin Sod/Tazobactam (Sod 3.375 gm/ Sodium Chloride) 50 mls @ 100 mls/ hr IV Q6H [facility] Last Admin: 05/24/17 07:24 Dose: Not Given Sodium Chloride (Normal Saline) 500 mls @ 250 mls/hr IV .BOLUS [facility] Stop: 05/23/17 05:24 Sodium Chloride (Normal Saline) 1,000 mls @ 125 mls/hr IV ASDIRECTED [facility] Stop: 05/23/17 04:30 Last Admin: 05/23/17 02:31 Dose: 125 mls/hr Levofloxacin/Dextrose 250 mg/ (Premix) 50 mls @ 50 mls/hr IV ONETIME ONE Stop: 05/23/17 00:52 Last Admin: 05/23/17 01:06 Dose: 50 mls/hr Piperacillin Sod/Tazobactam (Sod 3.375 gm/ Sodium Chloride) 50 mls @ 100 mls/ hr IV Q6H [facility] Piperacillin Sod/Tazobactam (Sod 3.375 gm/ Sodium Chloride) 50 mls @ 100 mls/ hr IV Q6H [facility] Last Admin: 05/23/17 05:52 Dose: 100 mls/hr Methylprednisolone Sodium Succinate (Solu-Medrol) 125 mg IVPUSH ONETIME ONE Stop: 05/22/17 21:07 Last Admin: 05/22/17 21:16 Dose: 125 mg Methylprednisolone Sodium Succinate (Solu-Medrol) 40 mg IVPUSH Q6H [facility] Last Admin: 05/24/17 07:23 Dose: Not Given Methylprednisolone Sodium Succinate (Solu-Medrol) 40 mg IVPUSH Q6H [facility] Last Admin: 05/23/17 08:27 Dose: 40 mg Methylprednisolone Sodium Succinate (Solu-Medrol) 40 mg IVPUSH Q12H [facility] Last Admin: 05/23/17 10:32 Dose: Not Given Mometasone Furoate/Formoterol Fumar (Dulera 200-5 Mcg) 0 puff IH DAILY [facility] Mometasone Furoate/Formoterol Fumar (Dulera 200-5 Mcg) 0 puff IH DAILY [facility] Non-Formulary Medication (Fluticasone/Vilanterol [Breo Ellipta 100-25 Mcg Inhalation Kit]) 1 puff INH DAILY [facility] Sodium Chloride (Saline Flush) 10 ml FLUSH ASDIRECTED PRN PRN Reason: Keep Vein Open Last Admin: 05/22/17 21:27 Dose: 10 ml Warfarin Sodium (Coumadin) 5 - 7.5 mg PO ASDIRECTED [facility] Warfarin Sodium (Coumadin) 2.5 mg PO ONETIME ONE Stop: 05/23/17 13:01 Last Admin: 05/23/17 13:30 Dose: 2.5 mg *Q Meaningful Use (DIS) - VTE *Q VTE Criteria *Q: VTE Pharmacological Contraindications *Q: High INR Value - Stroke *Q Stroke Criteria *Q: - AMI *Q AMI Criteria *Q:
--- NOTE | 2017-05-24 11:35 | CR ---
Heart size within normal limits. There is a reticular interstitial process. This is within both lung s. This may be infectious or inflammatory. Interstitial edema have this appearance.
--- NOTE | 2017-05-24 11:36 | CR ---
Heart size within normal limits. Interstitial process is similar in this may again indicate infectio us etiology or interstitial edema. Possible tiny nodules within the upper lobes. Recommend nonurgent noncontrast CT follow-up.
== END 2017-05-24 10:10 | disposition home or self-care (01) | DRG 190 ==
LOC: JP.ED 19:37 → UNDOADMIN 22:20 → JP.ICU 22:20 → UNDODISIN 05-24 10:10
PROVIDERS: ADMIT Hospitalist; ATTEND Hospitalist
DX: J44.0 Chronic obstructive pulmonary disease with (acute) lower respiratory infection (principal); J18.9 Pneumonia, unspecified organism; J96.91 Respiratory failure, unspecified with hypoxia; J44.1 Chronic obstructive pulmonary disease with (acute) exacerbation; F17.210 Nicotine dependence, cigarettes, uncomplicated; I48.91 Unspecified atrial fibrillation; Z79.01 Long term (current) use of anticoagulants; R06.02 Shortness of breath; R50.9 Fever, unspecified; G20 Parkinson's disease; M19.90 Unspecified osteoarthritis, unspecified site; Z85.46 Personal history of malignant neoplasm of prostate; G47.30 Sleep apnea, unspecified; H91.90 Unspecified hearing loss, unspecified ear; H54.7 Unspecified visual loss; Z79.52 Long term (current) use of systemic steroids
CPT/HCPCS: 36415; 36600; 71010 ×2; 80053; 81001; 82803; 83605; 83880; 85025; 87040 ×2; 94640; 96365; 96375; 99285; A9270; J1940; J1956; J2930; J7040; J7050; 80048; 80162; 83735; 85610; 94660; 94664; J2543; J2920; J7620